=== PATIENT | female | born 1990 | race Caucasian/White ===

== ENCOUNTER 2017-01-31 10:59 | Emergency (ER) | payer OTHER ==
[~2017-01-31 10:59] MED LIST: ALBUTEROL 0.5ML IH; AMOXICILLIN500 M1 PO; CIPRO PO; DOXYCYCLIN25 MG/5 ML PO; HYDROCODON-ACE1 EAC9 PO; NAPROXEN PO; NO MEDICATIONS; PHENERGAN PO; PHENERGAN25 MG PO; PREDNISONE1 MG PO; PRENATAL1 TA1
[2017-01-31 11:23] LABS: INFLUENZA A POS (NEG)
[2017-01-31 11:24] LABS: INFLUENZA B NEG (NEG)
[2017-03-15] MEDS ORDERED: BIRTH CONTROL (15:28)
== END 2017-01-31 12:15 | disposition home or self-care (01) ==
LOC: CFTX 10:59
PROVIDERS: Nurse Practitioner
DX: J10.1 Influenza due to other identified influenza virus with other respiratory manifestations (principal); Z98.890 Other specified postprocedural states; Z90.49 Acquired absence of other specified parts of digestive tract
CPT/HCPCS: 87651; 87804; 99282

== ENCOUNTER 2017-03-15 15:50 | Emergency (ER) | payer OTHER ==
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
[~2017-03-15 15:50] MED LIST changes: +BIRTH CONTROL
== END 2017-03-15 17:13 | disposition home or self-care (01) ==
LOC: SED 15:50
DX: S22.32XA Fracture of one rib, left side, initial encounter for closed fracture (principal); S80.02XA Contusion of left knee, initial encounter; S80.12XA Contusion of left lower leg, initial encounter; V49.50XA Passenger injured in collision with unspecified motor vehicles in traffic accident, initial encounter
CPT/HCPCS: 29530; 71100; 73560; 94640; 99284

== ENCOUNTER 2017-05-05 01:08 | Emergency (ER) | payer OTHER ==
--- NOTE | ~2017-05-05 | CT2 ---
[facility] A Service of [facility] RADIOLOGY TEXT RESULTS PATIENT: BRENNAN ZIMMER LOCATION: [facility] : [birth year] UNIT #: [id number] AGE: [address]: Enrique Sorto MD SEX: F ORDER DR: [id number] [place] [id number] E MR#: [id number] Acc #: [id number] NAME: BRENNAN ZIMMER : 1990 SEX: F STUDY DATE/TIME: 05/05/2017 UNIT: SED ROOM: STUDY DESCRIPTION: CT Abd and Pelv W Cont Attending Physician: Enrique Sorto M.D. Ordering Physician: Enrique Sorto M.D. Primary Care Physician: [facility] MEDICAL IMAGING REPORT This report is preliminary unless electronic signature is present. EXAM CT abdomen and pelvis 05/05 at 03:51 INDICATIONS Flank pain, fever, nausea and vomiting for 2 days. TECHNIQUE Axial images were obtained through the abdomen and pelvis following IV contrast administration. Multiplanar reformats were obtained. Comparison made with 03/27/2015. The CT exam was performed with one or more of the following radiation dose reduction techniques: automatic exposure control, adjustment of mA and/or kV according to patient size, and iterative reconstruction. FINDINGS Abdomen: Lung bases are clear. Again seen is a cyst or hemangioma in segment VII of the right hepatic lobe. Solid organs are otherwise normal. Gallbladder surgically absent. No biliary obstruction. Unopacified GI tract is normal. Pelvis: Urinary bladder demonstrates some mild wall thickening that could indicate cystitis. Correlate clinically. Bilateral ovarian follicles are present. Solid pelvic organs are otherwise normal. The appendix is surgically absent. The GI tract is otherwise normal. IMPRESSION 1. The appendix is surgically absent. The unopacified GI tract is otherwise within normal limits. 2. Mild thickening of the urinary bladder thompson may indicate a mild degree of cystitis. Correlate urinalysis results. The kidneys are normal. 3. Cholecystectomy. [facility] A Service of [facility] RADIOLOGY TEXT RESULTS PATIENT: BRENNAN ZIMMER LOCATION: SED : [birth year] UNIT #: [id number] AGE: [address]: Enrique Sorto MD SEX: F ORDER DR: 4. Stable cyst or hemangioma in segment VII of the liver. Dictated by... Van Gamez Jr., M.D. THIS IS AN ELECTRONICALLY VERIFIED REPORT Van Gamez Jr., M.D. at 05/05/2017 9:15 PM FELECIA/jennifer TD: 05/05/2017 10:44 JOB #: [id number] MEDICAL IMAGING REPORT Page 1 of 1
--- NOTE | ~2017-05-05 | CR63 ---
[facility]. [facility] A Service [facility] RADIOLOGY TEXT RESULTS PATIENT: BRENNAN ZIMMER LOCATION: SED : [birth year] UNIT #: [id number] AGE: [address]: Enrique Sorto MD SEX: F ORDER DR: [id number] [place] [id number] E MR#: [id number] Acc #: [id number] NAME: BRENNAN ZIMMER : 1990 SEX: F STUDY DATE/TIME: 05/05/2017 03:04 UNIT: SED ROOM: STUDY DESCRIPTION: CR Chest 2 View Attending Physician: Enrique Sorto M.D. Ordering Physician: Enrique Sorto M.D. Primary Care Physician: [facility] MEDICAL IMAGING REPORT This report is preliminary unless electronic signature is present. EXAM Chest x-ray, 05/05 at 03:04 INDICATION Fever with pain with breathing that started yesterday. COMPARISON 03/15/2017 FINDINGS PA and lateral examination of the chest upright shows a good expansion of the parenchyma with a normal distribution of the pulmonary vascularity. There is no indication of congestion, effusion, infiltrate, tumor, or nodular density. The pleural reflections and diaphragmatic contours are normal. The cardiac silhouette and mediastinal anatomy is within normal limits. IMPRESSION Normal chest. Dictated by... Van Gamez Jr., M.D. THIS IS AN ELECTRONICALLY VERIFIED REPORT Van Gamez Jr., M.D. at 05/05/2017 9:15 PM FELECIA/charlie TD: 05/05/2017 10:32 JOB #: [id number] MEDICAL IMAGING REPORT [facility] A Service [facility] RADIOLOGY TEXT RESULTS PATIENT: BRENNAN ZIMMER LOCATION: SED : [birth year] UNIT #: [id number] AGE: [address]: Enrique Sorto MD SEX: F ORDER DR: Page 1 of 1
[2017-05-05 02:41] LABS: BASOPHIL% 0.2 % (0-2.5); HEMATOCRIT 38.4 % (35.0-45.0); HEMOGLOBIN 12.9 gm/dL (12.0-16.0); LYMPHOCYTE# 1.6 X10e3 (1.0-3.5); LYMPHOCYTE% 23.3 % (17.0-45.0); MEAN CELL VOLUME 89.9 FL (83-96); MEAN CORPUSCULAR HEMOGLOBIN 30.2 PG (28-34); MEAN CORPUSCULAR HGB CONC 33.5 g/dL (30-36); MEAN PLATELET VOLUME 9.6 FL (6.5-11.5); MONOCYTE# 0.7 X10e3 (0-1.0); MONOCYTE% 9.7 % (3.0-12.0); NEUTROPHIL# 4.5 X10e3 (1.5-7.1); NEUTROPHIL% 66.8 % (40-75); PLATELET COUNT 138 X10e3 (140-420); RED BLOOD COUNT 4.27 X10e (3.90-5.30); RED CELL DISTRIBUTION WIDTH 14.1 % (11.0-15.5); WHITE BLOOD COUNT 6.8 X10e3 (4.0-10.5)
[2017-05-05 02:48] LABS: DIFF IND NO
[2017-05-05 02:49] LABS: URINE SOURCE CLEAN CATCH
[2017-05-05 02:52] LABS: URINE APPEARANCE HAZY; URINE BILIRUBIN NEG (NEG); URINE BLOOD 3+ (NEG); URINE COLOR YELLOW; URINE GLUCOSE NEG (NORM); URINE KETONE NEG (NEG); URINE LEUKOCYTE ESTERASE 3+ (NEG); URINE NITRATE POS (NEG); URINE PH 6.5 (5-8); URINE PROTEIN NEG (NEG); URINE UROBILINOGEN 0.2 MG/DL (NORM)
[2017-05-05 02:54] LABS: MICRO INDICATED? YES
[2017-05-05 03:01] LABS: CULTURE INDICATED? YES; URINE BACTERIA 2+ (NEG); URINE RBC 50-100 /[HPF] (0-2); URINE WBC INNUM /[HPF] (0-5)
[2017-05-05 03:02] LABS: URINE SQUAMOUS EPITHELIAL CELL MODERATE /[HPF]
[2017-05-05 03:03] LABS: URINE MUCUS PRESENT
[2017-05-05 03:05] LABS: BILIRUBIN, DIRECT 0.2 mg/dL (0.0-0.2); BILIRUBIN,INDIRECT 0.3 mg/dL (0.0-0.9); BILIRUBIN,TOTAL 0.5 mg/dL (0.2-2.0); BUN/CREATININE RATIO 8.75; CALCIUM SERUM 8.6 mg/dL (8.4-10.2); CREATININE SERUM 0.8 mg/dL (0.6-1.4); GLOM FILT RATE Estimated 102.6 mL/min (>60); POTASSIUM 3.4 mmol/L (3.5-5.1); PROTEIN TOTAL SERUM 7.2 g/dL (6.0-8.3)
[2017-05-06 23:40] LABS: CHLAMYDIA TRACH Not Detected (Not Detected); N GONOR Not Detected (Not Detected)
== END 2017-05-05 05:28 | disposition home or self-care (01) ==
LOC: SED 01:08
PROVIDERS: Emergency Medicine
DX: N12 Tubulo-interstitial nephritis, not specified as acute or chronic (principal); N72 Inflammatory disease of cervix uteri; N76.0 Acute vaginitis; F41.9 Anxiety disorder, unspecified
CPT/HCPCS: 36415; 71020; 74177; 80048; 80076; 81003; 83690; 84703; 85025; 87040; 87086; 87088; 87186; 87491; 87591; 87808; 87905; 96361; 96365; 99284; J0696; Q9967